=== PATIENT | female | born 1990 | race Two or more races ===

== ENCOUNTER 2020-11-13 10:04 | Emergency (ER) | payer MEDICAID ==
--- NOTE | 2020-11-13 10:20 | EDM.PDOC ---
ED HPI GENERAL MEDICAL PROBLEM - General Chief Complaint: Abdominal Pain Stated Complaint: Abdominal pain Time Seen by Provider: 11/13/20 10:20 - History of Present Illness INITIAL COMMENTS - FREE TEXT/NARRATIVE: 29-year-old female presents the emergency room with upper abdominal pain. Patient has developed burning sensation in her upper abdomen this morning. This probably started a couple hours ago. She had dry heaves x1 this did not help the situation. Patient has not had problems like this in the past no prior history of gastritis or ulcer disease. She has a mild burning sensation that moves part way up her chest. Abdominal Pain Score (Numeric/FACES): 7 - Related Data Allergies Allergy/AdvReac Type Severity Reaction Status Date / Time No Known Allergies Allergy Verified 11/13/20 10:17 Home Meds: Home Meds Famotidine 20 mg PO BID #14 tablet 11/13/20 [Rx] Levothyroxine 125 mcg PO DAILY 11/13/20 [History] Omeprazole 40 mg PO QAM #30 capsule. 11/13/20 [Rx] ED ROS GENERAL - Review of Systems Review Of Systems: See Below Constitutional: Reports: No Symptoms HEENT: Reports: No Symptoms Respiratory: Reports: No Symptoms Cardiovascular: Reports: No Symptoms GI/Abdominal: Reports: Abdominal Pain, Vomiting (Single episode of what she describes as dry heaves). Denies: Black Stool, Bloody Stool, Constipation, Diarrhea, Nausea : Reports: No Symptoms Musculoskeletal: Reports: No Symptoms ED EXAM, GENERAL - Physical Exam Exam: See Below Exam Limited By: No Limitations General Appearance: Alert, No Apparent Distress Head: Atraumatic, Normocephalic Neck: Normal Inspection, Supple, Non-Tender, Full Range of Motion Respiratory/Chest: No Respiratory Distress, Lungs Clear, Normal Breath Sounds Cardiovascular: Regular Rate, Rhythm, No Edema, No Murmur GI/Abdominal: Normal Bowel Sounds, Soft, Tender (Has some epigastric discomfort with palpation and to a lesser degree left upper quadrant discomfort. No rigidity rebound or guarding) Back Exam: Normal Inspection. No: CVA Tenderness (L), CVA Tenderness (R) Extremities: Normal Inspection, No Pedal Edema Neurological: Alert, Oriented, Normal Cognition Course - Vital Signs Last Recorded V/S: Last Vital Signs Temp 36.7 C 11/13/20 10:16 Pulse 76 11/13/20 10:16 Resp 15 11/13/20 10:16 BP 141/75 H 11/13/20 10:16 Pulse Ox 98 11/13/20 10:16 - Orders/Labs/Meds Meds: Medications Discontinued Medications Generic Name Dose Route Start Last Admin Trade Name Elvis PRN Reason Stop Dose Admin Al Hydroxide/Mg Hydroxide 30 0 ml 11/13/20 10:24 11/13/20 10:42 ml/ Lidocaine HCl 15 ml PO 11/13/20 10:25 30 ml ONETIME ONE Administration Famotidine 20 mg 11/13/20 12:05 11/13/20 12:09 Famotidine 20 Mg Tab PO 11/13/20 12:06 20 mg ONETIME ONE Administration Ondansetron HCl 4 mg 11/13/20 10:24 11/13/20 10:42 Ondansetron 4 Mg Tab.Dis PO 11/13/20 10:25 4 mg ONETIME ONE Administration Pantoprazole Sodium 40 mg 11/13/20 12:03 11/13/20 12:08 Pantoprazole 40 Mg Tab.Cr PO 11/13/20 12:04 40 mg ONETIME ONE Administration Sucralfate 1 gm 11/13/20 11:15 11/13/20 11:22 Sucralfate Suspension 1 Gm/10 Ml Cup PO 11/13/20 11:16 1 gm ONETIME ONE Administration - Re-Assessments/Exams Free Text/Narrative Re-Assessment/Exam: 11/13/20 12:18 Patient did much better after a GI cocktail. This was followed up with a single dose of Carafate. She continues to feel well. We will discharge her on omeprazole and start famotidine. Departure - Departure Time of Disposition: 12:18 Disposition: Home, Self-Care 01 Clinical Impression: Dyspepsia - Discharge Information Referrals: Martha Benitez MD [Primary Care Provider] - Forms: ED Department Discharge Additional Instructions: Return to the emergency room with any questions problems or worsening symptoms. Follow-up with your regular healthcare provider the middle to end of this next week. You have been started on 2 medications he will take Pepcid, or famotidine 20 mg twice daily for 1 week. You have also been started on omeprazole 40 mg take this 30 to 60 minutes before your morning meal. I have given you 30 of these with 2 refills. These were [place] electronically to [facility] [place] Sepsis Event Note (ED) - Evaluation Sepsis Screening Result: No Definite Risk - Focused Exam Vital Signs: Vital Signs Temp Pulse Resp BP Pulse Ox 11/13/20 10:16 36.7 C 76 15 141/75 H 98
[2020-11-13] MEDS ORDERED: Alum Hydrox/Mag Hydrox/Simeth 30 ML, Lidocaine 2% 15 ML PO ONE ×2 (10:24)
[2020-11-13] MEDS ORDERED: Ondansetron 4 MG Tab.DIS PO ONE (10:24)
[2020-11-13] MEDS ORDERED: Sucralfate Suspension 1 GM/10 ML Cup PO ONE (11:15)
[2020-11-13] MEDS ORDERED: Pantoprazole 40 MG Tab.CR PO ONE (12:03)
[2020-11-13] MEDS ORDERED: Famotidine 20 MG Tab PO ONE (12:05)
== END 2020-11-13 12:39 | disposition home or self-care (01) ==
LOC: JD.ED 10:04
DX: R10.13 Epigastric pain (principal)
CPT/HCPCS: 99283; A9270

== ENCOUNTER 2021-01-31 20:09 | Emergency (ER) | payer MEDICAID ==
[2021-01-31] MEDS ORDERED: Acetaminophen 325 MG Tab PO ONE (20:59)
--- NOTE | 2021-01-31 21:11 | EDM.PDOC ---
<Skyler Guardado Felicia - Last Filed: 01/31/21 23:37> ED HPI GENERAL MEDICAL PROBLEM - General Chief Complaint: General Stated Complaint: FEVER/CHILLS/COUGH Time Seen by Provider: 01/31/21 20:24 - Related Data Allergies Allergy/AdvReac Type Severity Reaction Status Date / Time No Known Allergies Allergy Verified 01/31/21 20:27 Home Meds: Home Meds Levothyroxine 125 mcg PO DAILY 11/13/20 [History] Ondansetron [Ondansetron ODT] 4 mg PO Q6H PRN #10 tab.rapdis 01/31/21 [Rx] Departure - Departure Time of Disposition: 23:38 Disposition: Home, Self-Care 01 Clinical Impression: COVID-19 - Discharge Information Prescriptions: Ondansetron [Ondansetron ODT] 4 mg PO Q6H PRN #10 tab.rapdis PRN Reason: Nausea/Vomiting Instructions: COVID-19 Referrals: Martha Benitez MD [Primary Care Provider] - Forms: ED Department Discharge, ED Return to Work/School Form Additional Instructions: You were seen in the emergency department today for cough, body aches, fever. Blood work and Covid testing were completed. Your Covid test was found to be positive. While in the ER, you received an infusion of monoclonal antibodies. Recommend that you go home and rest. Use Tylenol and ibuprofen as needed for fever and discomfort. Recommend that you purchase an [id number] pulse oximeter to monitor your oxygen saturations intermittently at home. If you are maintaining an oxygen saturation below 90% or experience any other worsening symptoms of concern, please do not hesitate to return to the emergency departmen t for reevaluation. A prescription for Zofran, the antinausea and vomiting was sent to [facility] in the [facility] use 1 every 6 hours as needed for nausea and vomiting <Mary Jane Peñaloza - Last Filed: 02/03/21 19:55> ED HPI GENERAL MEDICAL PROBLEM - General Source of Information: Reports: Patient, RN Notes Reviewed History Limitations: Reports: No Limitations - History of Present Illness INITIAL COMMENTS - FREE TEXT/NARRATIVE: Patient is a 30-year-old female presenting to the emergency department with complaints of fever, body aches, chills, cough, nasal congestion. Reports symptoms began mildly last evening but have increased in intensity today. Denies any significant shortness of breath. She did not receive Covid vaccinations. She has not taken any Tylenol or ibuprofen prior to coming to ER. On triage, she was found to be tachycardic at 110. Temperature 99.8 temporally, blood pressure 154/99, respiratory rate 16, oxygen 100% on room air. Past Medical History HEENT History: Reports: Impaired Vision Other HEENT History: glasses Endocrine/Metabolic History: Reports: Hypothyroidism, Obesity/BMI 30+ Other Endocrine/Metabolic History: thyroid removal - Past Surgical History HEENT Surgical History: Reports: Adenoidectomy Endocrine Surgical History: Reports: Thyroidectomy Social & Family History - Tobacco Use Tobacco Use Status *Q: Never Tobacco User - Caffeine Use Caffeine Use: Reports: Coffee - Recreational Drug Use Recreational Drug Use: No ED ROS GENERAL - Review of Systems Review Of Systems: See Below Constitutional: Reports: Fever, Chills HEENT: Reports: No Symptoms Respiratory: Reports: Cough. Denies: Shortness of Breath Cardiovascular: Reports: No Symptoms. Denies: Chest Pain Endocrine: Reports: No Symptoms GI/Abdominal: Reports: No Symptoms : Reports: No Symptoms Musculoskeletal: Reports: No Symptoms Skin: Reports: No Symptoms Neurological: Reports: No Symptoms Psychiatric: Reports: No Symptoms Hematologic/Lymphatic: Reports: No Symptoms Immunologic: Reports: No Symptoms ED EXAM, GENERAL - Physical Exam Exam: See Below Exam Limited By: No Limitations General Appearance: Alert, WD/WN, No Apparent Distress Respiratory/Chest: No Respiratory Distress, Lungs Clear, Normal Breath Sounds, No Accessory Muscle Use, Chest Non-Tender Cardiovascular: Normal Peripheral Pulses, Regular Rate, Rhythm, No Edema, No Gallop, No JVD, No Murmur, No Rub GI/Abdominal: Normal Bowel Sounds, Soft, Non-Tender, No Organomegaly, No Distention, No Abnormal Bruit, No Mass Neurological: Alert, Oriented, CN II-XII Intact, Normal Cognition, Normal Gait, Normal Reflexes, No Motor/Sensory Deficits Psychiatric: Normal Affect, Normal Mood Skin Exam: Warm, Dry, Intact, Normal Color, No Rash Course - Vital Signs Last Recorded V/S: Last Vital Signs Temp 99.8 F 01/31/21 20:25 Pulse 110 H 01/31/21 20:25 Resp 16 01/31/21 20:25 BP 154/99 H 01/31/21 20:25 Pulse Ox 100 01/31/21 20:25 - Orders/Labs/Meds Labs: Laboratory Tests 01/31/21 01/31/21 01/31/21 Range/Units 20:40 21:29 21:29 WBC 5.90 (3.98-10.04) K/mm3 RBC 4.60 (3.98-5.22) M/mm3 Hgb 13.9 (11.2-15.7) gm/dl Hct 42.6 (34.1-44.9) % MCV 92.6 (79.4-94.8) fl MCH 30.2 (25.6-32.2) pg MCHC 32.6 (32.2-35.5) g/dl RDW Std Deviation 46.7 H (36.4-46.3) fL Plt Count 246 (182-369) K/mm3 MPV 12.2 (9.4-12.3) fl Neut % (Auto) 69.0 (34.0-71.1) % Lymph % (Auto) 14.2 L (19.3-51.7) % [place] % (Auto) 15.4 H (4.7-12.5) % Eos % (Auto) 0.8 (0.7-5.8) Baso % (Auto) 0.3 (0.1-1.2) % Neut # (Auto) 4.06 (1.56-6.13) K/mm3 Lymph # (Auto) 0.84 L (1.18-3.74) K/mm3 [place] # (Auto) 0.91 H (0.24-0.36) K/mm3 Eos # (Auto) 0.05 (0.04-0.36) K/mm3 Baso # (Auto) 0.02 (0.01-0.08) K/mm3 Sodium 137 (136-145) mEq/L Potassium 3.8 (3.5-5.1) mEq/L Chloride 103 (98-107) mEq/L Carbon Dioxide 26 (21-32) mEq/L Anion Gap 11.8 (5-15) BUN 11 (7-18) mg/dL Creatinine 0.9 (0.55-1.02) mg/dL Est Cr Clr Drug Dosing 76.98 mL/min Estimated GFR (MDRD) > 60 (>60) mL/min BUN/Creatinine Ratio 12.2 L (14-18) Glucose 109 H (70-99) mg/dL Calcium 8.4 L (8.5-10.1) mg/dL Total Bilirubin 0.4 (0.2-1.0) mg/dL AST 21 (15-37) U/L ALT 42 (14-59) U/L Alkaline Phosphatase 106 (46-116) U/L Total Protein 7.8 (6.4-8.2) g/dl Albumin 3.8 (3.4-5.0) g/dl Globulin 4.0 gm/dL Albumin/Globulin Ratio 1.0 (1-2) SARS-CoV-2 RNA (NANCI) Positive H (NEGATIVE) Meds: Medications Discontinued Medications Generic Name Dose Route Start Last Admin Trade Name Freq PRN Reason Stop Dose Admin Acetaminophen 975 mg 01/31/21 20:59 01/31/21 21:04 Acetaminophen 325 Mg Tab PO 01/31/21 21:00 975 mg NOW ONE Administration Diphenhydramine HCl 50 mg 01/31/21 21:41 Diphenhydramine 50 Mg/Ml Sdv IVPUSH ONETIME PRN hypersensitivity reaction Epinephrine HCl 0.3 mg 01/31/21 21:41 Epinephrine 1 Mg/Ml Sdv IM ONETIME PRN hypersensitivity reaction Famotidine 20 mg 01/31/21 21:41 Famotidine 20 Mg/2 Ml Sdv IVPUSH ONETIME PRN hypersensitivity reaction CASIRIVIMAB/IMDEVIMAB 10 ml/ 110 mls @ 220 mls/hr 01/31/21 21:41 01/31/21 22:00 Sodium Chloride IV 01/31/21 22:10 220 mls/hr ONETIME ONE Administration Methylprednisolone Sodium Succinate 125 mg 01/31/21 21:41 Methylprednisolone Sodium Succinate 125 Mg/2 Ml Sdv IVPUSH ONETIME PRN hypersensitivity reaction Sodium Chloride 30 ml 01/31/21 21:45 Sodium Chloride 0.9% 10 Ml Syringe FLUSH ASDIRECTED BENJI - Re-Assessments/Exams Free Text/Narrative Re-Assessment/Exam: 01/31/21 21:43 Patient's Covid came back positive. I spoke with patient to provide information about Regeneron treatment for patient I offered them the ``Patient and Caregiver EUA Regeneron Fact Sheet to read and review I stated the drug has been approved by an emergency use authorization (EUA) process and has not fully been FDA reviewed or approved The patient meets the EUA requirements I discussed there are other potential treatment options that are currently not FDA approved to treat COVID-19. Offered opportunity to ask questions and all questions were answered Patient voiced understanding and agreed to proceed with treatment for patient. Departure - Departure Condition: Good - Discharge Information *PRESCRIPTION DRUG MONITORING PROGRAM REVIEWED*: No *COPY OF PRESCRIPTION DRUG MONITORING REPORT IN PATIENT PHILIPPE: No Sepsis Event Note (ED) - Evaluation Sepsis Screening Result: No Definite Risk
[2021-01-31] MEDS ORDERED: diphenhydrAMINE 50 MG/ML SDV IVPUSH PRN (21:41)
[2021-01-31] MEDS ORDERED: EPINEPHrine 1 MG/ML SDV IM PRN (21:41)
[2021-01-31] MEDS ORDERED: methylPREDNISolone Sodium Succinate 125 MG/2 ML SDV IVPUSH PRN (21:41)
[2021-01-31] MEDS ORDERED: Famotidine 20 MG/2 ML SDV IVPUSH PRN (21:41)
[2021-01-31] MEDS ORDERED: Sodium Chloride 0.9% 10 ML Syringe FLUSH SCH (21:45)
--- NOTE | 2021-02-01 07:48 | CR ---
Chest: Frontal view of the chest was obtained. Comparison: No prior chest imaging is available. Heart and mediastinum are normal. Slight increased left-sided perihilar markings are noted and difficult to exclude minimal bronchitis. Lungs otherwise are clear. Bony structures are unremarkable. Impression: 1. Possible minimal bronchitis within the left perihilar region. 2. Nothing acute is otherwise seen. Diagnostic code #3
== END 2021-01-31 23:30 | disposition home or self-care (01) ==
LOC: JD.ED 20:09
DX: U07.1 COVID-19 (principal); E03.9 Hypothyroidism, unspecified; E66.9 Obesity, unspecified; Z68.41 Body mass index [BMI] 40.0-44.9, adult; Z79.899 Other long term (current) drug therapy
CPT/HCPCS: 36415; 71045; 80053; 85025; 87635; 99283; A9270; M0243; Q0243; U0002

== ENCOUNTER 2021-09-26 22:52 | Emergency (ER) | payer BC, MEDICAID ==
[2021-09-27] MEDS: Ibuprofen 600 MG Tab PO ONE (01:08)
[2021-09-27] MEDS: Ondansetron 4 MG Tab.DIS PO ONE (01:09)
== END 2021-09-27 02:28 | disposition home or self-care (01) ==
LOC: JD.ED 22:52
DX: R51.9 Headache, unspecified (principal); R42 Dizziness and giddiness; R11.2 Nausea with vomiting, unspecified; E03.9 Hypothyroidism, unspecified; E66.9 Obesity, unspecified; Z68.41 Body mass index [BMI] 40.0-44.9, adult; Z28.310 Unvaccinated for COVID-19; Z86.16 Personal history of COVID-19
CPT/HCPCS: 36415; 80053; 81025; 83735; 85025; 99284; A9270

== ENCOUNTER 2021-12-07 08:59 | Emergency (ER) | payer OTHER, BC ==
[2021-12-07] MEDS ORDERED: Acetaminophen 325 MG Tab PO ONE (09:27)
== END 2021-12-07 11:20 | disposition home or self-care (01) ==
LOC: JD.ED 08:59
DX: S06.0X0A Concussion without loss of consciousness, initial encounter (principal); S16.1XXA Strain of muscle, fascia and tendon at neck level, initial encounter; E03.9 Hypothyroidism, unspecified; E66.9 Obesity, unspecified; Z68.30 Body mass index [BMI] 30.0-30.9, adult; Z79.899 Other long term (current) drug therapy; Z86.16 Personal history of COVID-19; W20.8XXA Other cause of strike by thrown, projected or falling object, initial encounter; Y99.0 Civilian activity done for income or pay
CPT/HCPCS: 70450; 72125; 99283; A9270